=== PATIENT | male | born 1975 | race Caucasian/White ===

== ENCOUNTER → 2020-08-29 10:09 | Outpatient (REF) | payer MEDICAID, OTHER, SELFPAY | LOC: HO.SL 10:09 | PROVIDERS: Visit Provider Emergency Medicine | DX: G47.33 Obstructive sleep apnea (adult) (pediatric) (principal); G47.00 Insomnia, unspecified; R63.5 Abnormal weight gain | CPT/HCPCS: 95806 ==

== ENCOUNTER 2025-01-26 08:39 | Outpatient (REF) | payer MEDICAID, OTHER, SELFPAY ==
--- OUTSIDE RECORDS SUMMARY | 2025-01-26 09:01 | XMS_ITS | Encounter Summary ---
Author Organization [employer] Address [address] [facility] [address] [address] Care Team Providers Care Facing Slitter Name Role Phone Petty Ko [facility] Primary Care Provider [phone] Hany Baumann Unavailable Unavailable Encounter Details Date Type Department Care Team (Latest Contact Info) Description 02/01/2022 Abstract [facility] CONVERSIONS Dental, Provider, DDS Social History Tobacco Use Types Packs/Day Years Used Date Smoking Tobacco: Never Assessed Sex and Gender Information Value Date Recorded Sex Assigned at Male 08/27/2022 10:19 AM EDT Legal Sex Male 10:19 AM EDT Gender Identity Male 08/27/2022 10:19 AM EDT Sexual Orientation Choose not to disclose 2021 10:19 AM EDT documented as of this encounter Plan of Treatment Upcoming Encounters Date Type Department Care Team (Late st Contact Info) Description 02/01/2025 2:00 PM EDT Office Visit [facility] ADULT DENTAL [address] [place] [address] Radha Grove 02/08/2025 2:00 PM EDT Office Visit [facility] ADULT DENTAL [address] [place] [address] Radha Grove 03/05/2025 2:00 PM EDT Office Visit [facility] OPTOMETRY [address] [place] [address] Rocky, Malika, OD [address] [place] [address] documented as of this encounter Visit Diagnoses Not on filedocumented in this encounter Care Teams Facing Slitter Relationship Specialty Start Date End Date Petty Ko FNP [address] [place] [address] PCP - General Family Medicine 06/25/22 Hany Baumann FNP [address] [place] [id number] Nurse Practitioner Family Medicine 10/01/23 documented as of this encounter
--- OUTSIDE RECORDS SUMMARY | 2025-01-26 09:01 | XMS_ITS | Encounter Summary ---
Author Organization [employer] Address [address] [address] Care Team Providers Care Highway Maintenance Technician Name Role Phone Petty Ko Primary Care Provider [phone] Hany Baumann Unavailable Unavailable Reason for Referral * Consultation (Routine) - Authorized Specialty Diagnoses / Procedures Referred By Nkechi flores Referred To Contact Psychiatry / Behavioral Health Diagnoses Severe major depression (CMS/HCC) Petty Ko FNP [address] [place] [address] Phone: tel: fax: Referral ID Status Reason Start Date Expiration Date Visits Requested Visits Authorized [id number] Authorized Specialty Services Required 01/24/2025 01/24/2026 1 1 * Consultation (Routine) - Authorized Specialty Diagnoses / Procedures Referred By Nkechi flores Referred To Contact Behavioral Health Diagnoses Severe major depression (CMS/HCC) Petty Ko FNP [address] [place] [address] Phone: tel: fax: Referral ID Status Reason Start Date Expiration Date Visits Requested Visits Authorized [id number] Authorized Specialty Services Required 01/24/2025 01/24/2026 1 1 Reason for Visit * Reason Comments Follow-up Encounter Details Date Type Department Care Team (Britt st Contact Info) Description 01/22/2025 2:30 PM EDT Office Visit [facility] MEDICINE [address] [place] [address] [facility] [address] [place] [address] Severe major depression (CMS/HCC) (Primary Dx); Lower urinary tract symptoms; Mixed hyperlipidemia; Dietary counseling; Exercise counseling; Class 1 obesity due to excess calories with serious comorbidity and body mass index (BMI) of 32.0 to 32.9 in adult Social History Tobacco Use Types Packs/Day Years Used Date Smoking Tobacco: Never Smokeless Tobacco: Never Tobacco Cessation:Counseling Given: Not Answered Alcohol Use Standard Drinks/Week Comments Never 0 (1 standard drink = 0.6 oz pur e alcohol) Depression Answer Date Recorded Patient Health Questionnaire-9 Score 8 01/22/2025 Patient Health Questionnaire-9 Score 8 01/22/2025 Last PHQ-9: Questionnaire Data Not on file 0 01/22/2025 Housing Stability Answer Date Recorded What is your housing situation today? I have patricia velasquez 08/12/[address] you li ve. Do you have problems with any of the following? None of the above 08/12/2023 Food Insecurity Answer Date Recorded Within the past 12 months, y ou worried that your food would run out before you got money to buy more: Never True 08/12/2023 Within the past 12 months,th e food you bought just didn't last and you didn't have enough money to get more: Never True Transportation Answer Date Recorded In the past 12 months, has l ack of transportation kept you from medical appts, meetings, work or from getting things needed for daily living? No 08/12/2023 Utilities Answer Date Recorded In the past 12 months, has t he electric, gas, oil or water company threatened to shut off services in your home? No 08/12/2023 Depression Answer Date Recorded Patient Health Questionnaire-2 Score 2 01/22/2025 Sex and Gender Information Value Date Recorded Sex Assigned at Male 08/27/2022 10:19 AM EDT Legal Sex Male 10:19 AM EDT Gender Identity Male 08/27/2022 10:19 AM EDT Sexual Orientation Choose not to disclose 2021 10:19 AM EDT documented as of this encounter Last Filed Vital Signs Vital Sign Reading Time Taken Comments Blood Pressure 138/88 01/22/2025 2:38 PM EDT Pulse 88 01/22/2025 2:38 PM EDT Temperature 36.3 ??C (97.4 ??F) 01/22/2025 2:38 PM ED T Respiratory Rate 20 01/22/2025 2:38 PM EDT Oxygen Saturation 98% 01/22/2025 2:38 PM EDT Inhaled Oxygen Concentration - - Weight 79.5 kg (175 lb 3.2 oz) 01/22/2025 2:38 P M EDT Height 157.5 cm (5' 2 ) 01/22/2025 2:38 PM EDT Body Mass Index 32.04 01/22/2025 2:38 PM EDT documented in this encounter Progress Notes * [facility], [facility] - 01/22/2025 2:30 PM EDT SUBJECTIVE: Get Birch is a 49 y.o. year old male with depression, NAFLD, HLD, IFG and hx of cerebral cysticercosis with persistent headache (previously followed by [facility] neurolog[place] who presents for chronic disease management. Denies recent illness, injury, or hospitalization. Last PCP Visit: 07/2023 Acute Concerns: Lower urinary tract sx-nocturia 2-3 x/night, no difficulty initaing urine, no other urinary sx. Drinking more coffee. Interval History Needs to be established with psychatric care. Not established with therapist. Accepts remote referral. Social History Social History Narrative Current living environment: Lives with and kids. 2 cats. 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 Sober x 30 years--would like to establsih with AUD clinic Marijuana Use: None Other drug use: None Patient Active Problem List Diagnosis Mild episode of recurrent major depressive disorder (CMS/HCC) Vitamin D deficiency Transaminitis Steatosis of liver Other chest pain Obstructive sleep apnea syndrome Numbness of hand IFG (impaired fasting glucose) Hypercholesterolemia H/O: attempted suicide Cerebral cysticercosis Dental calculus Periodontal disease Localized gingival recession Missing teeth, acquired Severe anxiety Mixed hyperlipidemia PTSD (post-traumatic stress disorder) Alcohol use Moderate episode of recurrent major depressive disorder (CMS/HCC) Abfraction No past surgical history on file. Family History Problem Relation Name Age of Onset Coronary artery disease Mother Review of Systems Constitutional: Negative for activity change, diaphoresis, fatigue, fever and unexpected weight change. Eyes: Negative for visual disturbance. Respiratory: Negative for apnea, cough, chest tightness and shortness of breath. Cardiovascular: Negative for chest pain, palpitations and leg swelling. Gastrointestinal: Negative for abdominal pain and nausea. Genitourinary: Positive for frequency. Negative for difficulty urinating, dysuria, hematuria and urgency. Neurological: Negative for dizziness, syncope, light-headedness and headaches. OBJECTIVE: Vitals: 01/22/25 1438 BP: 138/88 Pulse: 88 Resp: 20 Temp: 97.4 ??F (36.3 ??C) SpO2: 98% Physical Exam Constitutional: Appearance: Normal appearance. HENT: Head: Normocephalic. Right Ear: External ear normal. Left Ear: External ear normal. Nose: Nose normal. Eyes: Conjunctiva/sclera: Conjunctivae normal. Cardiovascular: Rate and Rhythm: Normal rate and regular rhythm. Heart sounds: Normal heart sounds. Pulmonary: Effort: Pulmonary effort is normal. Breath sounds: Normal breath sounds. Musculoskeletal: Right lower leg: No edema. Left lower leg: No edema. Skin: General: Skin is warm and dry. Capillary Refill: Capillary refill takes less than 2 seconds. Neurological: General: No focal deficit present. Mental Status: He is alert and oriented to person, place, and time. Psychiatric: Mood and Affect: Mood normal. Behavior: Behavior normal. ASSESSMENT/PLAN Depression -Currently Rx'd prazosin, Rip resolved, bupropion, lorazepam, venlafaxine, melatonin. Was previously followed by DONELL Baumann. - Patient is currently stable however needs referral for psych prescriber and outpatient therapy - Referral to behavioral health. Patient unable to stay for in person consult - Contact HC if sx worsen or experiencing thoughts of SI or self harm. Pt has N crisis contact information Nocturia -Will obtain UA, PSA, baseline labs - Patient to focus on lifestyle interventions including decreasing bladder irritants, limiting fluid intake before bed - Will follow-up pending lab results HLD -Continues rosuvastatin 20 mg - Will obtain fasting lipid panel - Dietary/exercise counseling Dietary Recommendations: Fruits, vegetables, whole grains, protein foods, and fat-free or low-fat dairy products are healthychoices. Eat different types of protein foods in your diet. This can include seafood, lean meats, poultry, beans, peas, lentils, nuts, seeds, soy products, and eggs. Limit foods and beverages higher in added sugars, saturated fat, and sodium. Exercise Recommendations: At least 150 minutes of moderate-intensity physical activity per week, or an equivalent combinationof moderate- and vigorous-intensity activity Diagnosis Plan 1. Severe major depression (CMS/HCC) Referral to Behavioral Health Referral to Behavioral Health Psychiatry 2. Lower urinary tract symptoms Hemoglobin A1c PSA,Total Urinalysis, Complete, with Reflex to Culture Hemoglobin A1c PSA,Total Urinalysis, Complete, with Reflex to Culture 3. Mixed hyperlipidemia rosuvastatin (Crestor) 20 MG tablet Comprehensive Metabolic Panel Lipid Panel, Standard Comprehensive Metabolic Panel Lipid Panel, Standard 4. Dietary counseling 5. Exercise counseling 6. Class 1 obesity due to excess calories with serious comorbidity and body mass index (BMI) of 32.0 to 32.9 in adult Follow Up: 6 months, routine Current Outpatient Medications on File Prior to Visit Medication Sig Dispense Refill ARIPiprazole (Abilify) 15 MG tablet Take 1 tablet (15 mg) by mouth at bedtime. 90 tablet 3 buPROPion XL (Wellbutrin XL) 300 MG 24 hr tablet Take 1 tablet (300 mg) by mouth in the morning. Donot crush, chew, or split. 90 tablet 3 gabapentin (Neurontin) 100 MG capsule TAKE 1 CAPSULE BY MOUTH DAILY IN THE EVENING LORazepam (Ativan) 1 MG tablet Take 1 tablet (1 mg) by mouth if needed at bedtime for anxiety. 30 tablet 5 melatonin 5 MG tablet Take 1 tablet (5 mg) by mouth if needed at bedtime (sleep). 90 tablet 3 prazosin (Minipress) 2 MG capsule Take 1 capsule (2 mg) by mouth at bedtime. 90 capsule 3 rosuvastatin (Crestor) 20 MG tablet Take 1 tablet (20 mg) by mouth at bedtime. 90 tablet 3 venlafaxine XR (Effexor XR) 75 MG 24 hr capsule Take 1 capsule (75 mg) by mouth Once daily. Do not crush or chew. 90 capsule 3 No current facility-administered medications on file prior to visit. Mongolian Translation: Provided by [facility] staff member JUANJO Rivera documented in this encounter Plan of Treatment Upcoming Encounters Date Type Department Care Team (Late st Contact Info) Description 02/01/2025 2:00 PM EDT Office Visit [facility] ADULT DENTAL [address] [place] [address] Radha Grove 02/08/2025 2:00 PM EDT Office Visit [facility] ADULT DENTAL [address] [place] [address] Radha Grove 03/05/2025 2:00 PM EDT Office Visit [facility] OPTOMETRY [address] [place], [place] [id number] Rocky, Malika, OD [address] [place] [address] Scheduled Orders Name Type Priority Associated Diagnoses Orde r Schedule Comprehensive Metabolic Panel Lab Routine Mixed hyperlipidemia Expected: 01/22/2025 (Approximate), Expires: 01/22/2026 Hemoglobin A1c Lab Routine Lower urinary tract symptoms Expected: 01/22/2025 (Approximate), Expires: 01/22/2026 PSA,Total Lab Routine Lower urinary tract symptoms Expected: 01/22/2025, Expires: 01/22/2026 Urinalysis, Complete, with Reflex to Culture Lab Routine Lower urinary tract symptoms Expected: 01/22/2025 (Approximate), Expires: 01/22/2026 Lipid Panel, Standard Lab Routine Mixed hyperlipidemia Expected: 01/22/2025 (Approximate), Expires: 01/22/2026 Scheduled Referrals Name Type Priority Associated Diagnoses Order Schedule Referral to Behavioral Health Outpatient Referral Routine Severe major depression (CMS/HCC) Expected: 01/24/2025 (Approximate), Expires: 01/24/2026 Referral to Behavioral Health Psychiatry Outpatient Referral Routine Severe major depression (CMS/HCC) Expected: 01/24/2025 (Approximate), Expires: 01/24/2026 documented as of this encounter Visit Diagnoses Diagnosis Severe major depression (CMS/HCC)- Primary Lower urinary tract symptoms Other symptoms involving urinary system Mixed hyperlipidemia Dietary counseling Dietary surveillance and counseling Exercise counseling Class 1 obesity due to excess calories with serious comorbidity and body mass index (BMI) of 32.0 to 32.9 in adult documented in this encounter Additional Health Concerns Assessment Noted Time PHQ-9 Depression Total Score: 8 01/23/20 25 2:40 PM EDT documented as of this encounter Care Teams Highway Maintenance Technician Relationship Specialty Start Date End Date Petty Ko FNP [address] [place] [address] PCP - General Family Medicine 06/25/22 Hany Baumann FNP [address] [place] [phone] Nurse Practitioner Family Medicine 10/01/23 documented as of this encounter
--- OUTSIDE RECORDS SUMMARY | 2025-01-26 09:01 | XMS_ITS | Encounter Summary ---
Author Organization [employer] Address [address] [facility] [address] [place] [address] Care Team Providers Care Perpetual Inventory Clerk Name Role Phone Petty Ko [employer]WORK [employer] Primary Care Provider [phone] Hany Baumann [employer]WORK REL[employer] TE[employer] Unavailable Unavailable Encounter Details Date Type Department Care Team (Latest Contact Info) Description 01/22/2025 Travel Social History Tobacco Use Types Packs/Day Years Used Date Smoking Tobacco: Never Smokeless Tobacco: Never Alcohol Use Standard Drinks/Week Comments Never 0 [...] Description 02/01/2025 2:00 PM EDT Office Visit [facility] ADULT DENTAL [address] [place] [address] Radha Grove 02/08/2025 2:00 PM EDT Office Visit [facility] ADULT DENTAL [address] [place] [address] Radha Grove 03/05/2025 2:00 PM EDT Office Visit [facility] OPTOMETRY [address] [place] [address] Rocky, Malika, OD [address] [place] [address] documented as of this encounter Visit Diagnoses Not on filedocumented in this encounter Additional Health Concerns Assessment Noted Time PHQ-9 Depression Total Score: 8 01/23/20 25 2:40 PM EDT documented as of this encounter Care Teams Perpetual Inventory Clerk Relationship Specialty Start Date End Date Petty Ko FNP [address] [place] [address] PCP - General Family Medicine 06/25/22 Hany Baumann FNP [address] [place] [address] Nurse Practitioner Family Medicine 10/01/23 documented as of this encounter
--- OUTSIDE RECORDS SUMMARY | 2025-01-26 09:02 | XMS_ITS | Clinical Summary ---
Author Organization [employer] Address [address] [place] [address] Care Team Providers Care Beamster Name Role Phone Petty Ko CAN MARKER Primary Care Provider [phone] Hany Baumann CAN MARKER Unavailable Unavailable Allergies No known active allergies Medications * This document contains information received from the source organization and may not represent a complete record from that organization. gabapentin (Neurontin) 100 MG capsule TAKE 1 CAPSULE BY MOUTH DAILY IN THE EVENING 08/09/20 23 Active ARIPiprazole (Abilify) 15 MG tabletIndications :Severe major depression (CMS/HCC) Take 1 tablet (15 mg) by mouth at bedtime. 90 tablet 3 04/09/20 24 Active buPROPion XL (Wellbutrin XL) 300 MG 24 hr tabletIndications :Severe major depression (CMS/HCC) Take 1 tablet (300 mg) by mouth in the morning. Do not crush, chew, or split. 90 tablet 3 04/09/20 24 Active LORazepam (Ativan) 1 MG tabletIndications :Severe major depression (CMS/HCC) Take 1 tablet (1 mg) by mouth if needed at bedtime for anxiety. 30 tablet 5 04/09/20 24 Active melatonin 5 MG tabletIndications :Severe major depression (CMS/HCC) Take 1 tablet (5 mg) by mouth if needed at bedtime (sleep). 90 tablet 3 04/09/20 24 Active prazosin (Minipress) 2 MG capsuleIndication s:Severe major depression (CMS/HCC) Take 1 capsule (2 mg) by mouth at bedtime. 90 capsule 3 04/09/20 24 Active venlafaxine XR (Effexor XR) 75 MG 24 hr capsuleIndication s:Severe major depression (CMS/HCC) Take 1 capsule (75 mg) by mouth Once daily. Do not crush or chew. 90 capsule 3 04/09/20 24 Active rosuvastatin (Crestor) 20 MG tabletIndications :Mixed hyperlipidemia Take 1 tablet (20 mg) by mouth at bedtime. 90 tablet 3 01/23/20 25 Active rosuvastatin (Crestor) 20 MG tabletIndications :Mixed hyperlipidemia Take 1 tablet (20 mg) by mouth at bedtime. 90 tablet 3 12/21/19 25 025 Discontinued(Re order (will not trigger notification to Pharmacy)) Active Problems Problem Noted Date Diagnosed Date Abfraction 2024 Moderate episode of recurrent major depressive d isorder 04/09/2024 Assessment & Plan (04/09/2024 5:37 PM EDT): Pt does have history of suicide attempt several years ago. Does not currently have SI, so no indication for Crisis involvement or inpatient care. Although he lives with his and children and works with others, has struggled with feeling isolated and alone. Having intrusive thoughts about purchasing a gun, although has no SI or HI and no plan to act on the thoughts. Reviewed with patient the risks associated with having a firearm in the home, especially as he has children, and risk associated with impulsivity if episode of worsened depression. Urged to discuss these thoughts and feelings with his therapist. He says he will call to reschedule appt. He will continue current medications: Venlafaxine 75 mg once daily, Bupropion XL 300 mg daily in the morning, Aripiprazole 15 mg daily, Prazosin 2 mg at bedtime, Lorazepam 1 mg at bedtime, Melatonin 5 mg at bedtime prn. Since this provider will be retiring, he is now referred back to PCP for further medication management. Any issues or concerns, contact [facility]. All his questions were answered and I have wished him well. He agrees with the plan Alcohol use 03/09/2024 PTSD (post-traumatic stress disorder) 02/20/2024 Mixed hyperlipidemia 08/28/2023 Severe anxiety 08/26/2023 Assessment & Plan (08/26/2023 8:54 AM EDT): Assessment: Patient with anxiety and depressive sxs. Factors contributing to his sxs are, uncertainty about migrant status. Provide him a space to vent and discuss the importance of stay in the present moment, rather than focus on the future, provided him with relaxation techniques for him to practice at least 1x/day. Patient will benefit from stay engaged with this functional tester typewriters to develop the skills to manage sxs. Patient unable to be referred to terminal make up operator therapy due to health insurance don't cover services. At this time Get Birch meets criteria for Visit Diagnoses: Problem List Items Addressed This Visit Other Moderate episode of recurrent major depressive disorder (CMS/HCC) Severe anxiety Patient ready to address current needs Yes Strengths include Get is in action stage of change, he is receptive and willing to engage. PLAN: 1. Follow up with [facility]: Recommended for follow-up: 08/28/23 at 3:30pm 2. Patient goal is improve mental health 3. Behavioral Recommendations a. [facility] follow up b. Use of coping skills recommended c. Taking Medication as prescribed Dental calculus 06/13/2023 Periodontal disease 06/13/2023 Localized gingival recession 06/13/2023 Missing teeth, acquired 06/13/2023 Obstructive sleep apnea syndrome 05/31/2023 Overview (08/09/2023): Using CPAP and purchasing supplies out of pocket due to insurance Mild episode of recurrent major depressive disor tammy 11/05/2022 Assessment & Plan (02/03/2024 4:45 PM EDT): Pt does have history of suicide attempt several years ago. Does not currently have SI, so no indication for Crisis involvement or inpatient care. Although he lives with his and children and works with others, has struggled with feeling isolated and alone. Previously reported that he found it helpful to work with [facility] Clinician Sahara Mcintosh. Unfortunately missed another appointment with her and F/U phone call and did not call to reschedule. Although it is admittedly challenging for him to get to appointments with his work schedule, he has shown little motivation to seek out support. Still with irritability and persistent anhedonia despite significant psychiatric polypharmacy. No med change at this time. Continue Venlafaxine 75 mg once daily, Bupropion XL 300 mg daily in the morning, Aripiprazole 15 mg daily, Prazosin 2 mg at bedtime, Lorazepam 1 mg at bedtime, Melatonin 5 mg at bedtime prn. On 08/19/2023 pt was advised that provider would be retiring. F/U in 2 months and we will discuss plan for continuity of care. He agrees with the plan Assessment & Plan (12/05/2023 5:37 PM EST): Pt does have history of suicide attempt several years ago. Does not currently have SI, so no indication for Crisis involvement or inpatient care. Although he lives with his and children and works with others, has struggled with feeling isolated and alone. He has found it helpful to work with [facility] Clinician Sahara Mcintosh, and is now urged to call to schedule F/U session. Still with persistent anhedonia despite significant psychiatric polypharmacy. No med change at this time. Continue Venlafaxine 75 mg once daily, Bupropion XL 300 mg daily in the morning, Aripiprazole 15 mg daily, Prazosin 2 mg at bedtime, Lorazepam 1 mg at bedtime, Melatonin 5 mg at bedtime prn. On 08/19/2023 pt was advised that provider would be retiring, but we would make every effort to ensure continuity of care. F/U with me in 2 months. He agrees with the plan. Assessment & Plan (10/25/2023 8:22 AM EST): PROGRESS NOTE: ID: Get is a 47 y.o. cis-male with previous documented hx of Depression and Anxiety, Hx of MH services including psychopharmacology who presents for Depression and Anxiety. He lives with , 2 adult children and 1 teenager. 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 During [facility] Consult Get presenting with depressed mood, loss of interests/pleasure , changes in sleep difficulty falling asleep, difficulty staying asleep , and restless, unsatisfying sleep, change in appetite or weight reduce appetite, psychomotor agitation, trouble concentrating, thoughts of worthlessness or guilt, fatigue/loss of energy and excessive worry/anxiety, difficulty controlling worry, restless/keyed up/On edge, easily fatigued, difficulty concentrating/Mind going blank , irritability, and sleep disturbance difficulty falling asleep, difficulty staying asleep , and restless, unsatisfying sleep; for a period of 18+ mo, for all symptoms in the context of traumatic event related to deportation, negative feelings that hold him to be the father he was before and due to this episode he carries a lot of guilt, and shame. PLAN: Behavioral Health Integration Plan: [facility] Patient Self Plan: Patient to utilize skills provided in intervention, Patient to reach out to [facility] team as needed, and Comply with medication. Assessment & Plan (09/26/2023 9:37 AM EST): Assessment: Patient presents with depressive symptoms. Passive SI without plan or intention. Reason for visit was to assess symptoms and provide support to patient. Symptoms are present in the context uncertainty on migratory status and financial struggle. Provided space non judgement space for him to expressed with concerns and provided psychoeducation around the importance of accepting what he can't change and committing on what he can change and Provided [facility] crisis number for him to call if a crisis event arise. At this time Get Birch meets criteria for Visit Diagnoses: Problem List Items Addressed This Visit Other Moderate episode of recurrent major depressive disorder (CMS/HCC) Severe anxiety Patient ready to address current needs Yes Strengths include Get is in action stage of change, he is receptive and willing to work on his MH. PLAN: 1. Follow up with [facility]: Recommended for follow-up: 10/24/23 at 3pm 2. Patient goal is to improve mental health 3. Behavioral Recommendations a. [facility] Follow up b. Use of coping skills c. Keeping Med. Management appts Assessment & Plan (08/29/2023 12:05 PM EDT): Assessment: Patient presents with depressive symptoms. Passive SI without plan or intention. Reason for visit was to assess symptoms and provide support to patient. Symptoms are present in the context uncertain migrant status and financial struggle. Provided space for him to vent and provide him with coping skills for him to manage depressive sxs. Encouraged him to continue to take his meds as prescribed and keep appts. ? At this time Get Birch meets criteria for Visit Diagnoses: Problem List Items Addressed This Visit ? Other ?? Moderate episode of recurrent major depressive disorder (CMS/HCC) ?? Patient ready to address current needs Yes ?? Strengths include Get is in action stage of change, he is receptive and willing to work on his MH. ?? PLAN: 1. Follow up with [facility]: Recommended for follow-up: 09/11/23 at 2:30pm 2. Patient goal is to improve mental health 3. Behavioral Recommendations a. [facility] Follow up b. Use of coping skills c. Keeping Med. Management appts Assessment & Plan (08/26/2023 8:54 AM EDT): Assessment: Patient with anxiety and depressive sxs. Factors contributing to his sxs are, uncertainty about migrant status. Provide him a space to vent and discuss the importance of stay in the present moment, rather than focus on the future, provided him with relaxation techniques for him to practice at least 1x/day. Patient will benefit from stay engaged with this functional tester typewriters to develop the skills to manage sxs. Patient unable to be referred to terminal make up operator therapy due to health insurance don't cover MH services. At this time Get Birch meets criteria for Visit Diagnoses: Problem List Items Addressed This Visit Other Moderate episode of recurrent major depressive disorder (CMS/HCC) Severe anxiety Patient ready to address current needs Yes Strengths include Get is in action stage of change, he is receptive and willing to engage. PLAN: 1. Follow up with [facility]: Recommended for follow-up: 08/28/23 at 3:30pm 2. Patient goal is improve mental health 3. Behavioral Recommendations a. IB follow up b. Use of coping skills recommended c. Taking Medication as prescribed Assessment & Plan (08/19/2023 5:28 PM EDT): Pt does have history of suicide attempt several years ago. Although he lives with his and children and works with others, has struggled with feeling isolated and alone. He started counseling with [facility] Clinician Sahara Mcintosh, but has not followed up to schedule continuing appts. Still with persistent anhedonia despite significant psychiatric polypharmacy. Has poor self-efficacy, consider element of personality disorder. Again reviewed that medication can be helpful but is only part of the treatment plan and he is urged to F/U with therapist, and practice coping strategies. No med change at this time. Continue Venlafaxine 75 mg once daily, Bupropion XL 300 mg daily in the morning, Aripiprazole 15 mg daily, Prazosin 2 mg at bedtime, Lorazepam 1 mg at bedtime, Melatonin 5 mg at bedtime prn. Today 08/19/2023 pt was advised that provider would be retiring within the next year or so, but we would make every effort to ensure continuity of care. F/U with me in 2 months. He agrees with the plan. Assessment & Plan (07/08/2023 5:10 PM EDT): Pt does have history of suicide attempt several years ago. Although he lives with his and children and works with others, has struggled with feeling isolated and alone. He has recently started counseling with [facility] Clinician Sahara Mcintosh. Urged to call to reschedule recent missed appointment. Still with persistent anhedonia despite significant psychiatric polypharmacy. Will adjust meds now: Increase to Venlafaxine 75 mg once daily. Stop Bupropion XL 150 mg daily. Continue Bupropion XL 300 mg daily but take in the morning not at bedtime. Continue Aripiprazole 15 mg daily, Prazosin 2 mg at bedtime, Lorazepam 1 mg at bedtime, Melatonin 5 mg at bedtime prn. Reschedule missed F/U with PCP. F/U with me in 4-6 weeks. He agrees with the plan. Assessment & Plan (06/14/2023 9:25 AM EDT): Assessment: Patient with anhedonia, insomnia, fatigue, poor appetite, low self-esteem, indecisiveness, passive SI without plan or intention, intrusive thoughts, isolation, persistent worry, trouble relaxing, anxiousness and fearfulness. Factors contributing to this symptoms are, the need to renew his work permit and license, not having a stable job to provide for his family. Patient will benefit from continuation of MH services with this functional tester type[employer] and keeping Med. Management appts to discuss medication efficacy. At this time Get Birch meets criteria for Visit Diagnoses: Problem List Items Addressed This Visit Other Major depressive disorder, recurrent episode with anxious distress (CMS/HCC) Patient ready to address current needs insurance doesn't cover services, meeting with me every 3 weeks. Strengths include willing to change and seeking support. PLAN: 1. Follow up with [facility]: Recommended for follow-up: 07/04/23 at 3:30pm 2. Patient goal is to learn coping skills to manage sxs 3. Behavioral Recommendations a. [facility] Follow up b. Use of coping skills c. Keeping Med. Management appts Assessment & Plan (05/23/2023 2:13 PM EDT): Get was engaged with active reflective listening and open-ended questions. Assessed symptoms, risks, and social supports with direct questions. Discussed current symptoms intensity and frequency. Emotions were normalized and validated. He identified listening to music, road trips, breathing techniques and physical activity as coping mechanisms and family as protective factors. Provided psychoeducation around coping skills for depression. Discussed OP therapy but due to his insurance he is not able to be referred for OP services. Provided education around integrated medicine and the options of follow up BE's as needed. Provided contact information should questions or concerns arise. Patient ready to address current needs insurance doesn't cover services for OP Strengths include willing to change PLAN: 1. Follow up with [facility]: Recommended for follow-up: 05/23/23 at 3:30pm 2. Patient goal is to learn coping skills to manage sxs 3. Behavioral Recommendations a. [facility] Follow up b. Use of coping skills Assessment & Plan (04/29/2023 5:03 PM EDT): Pt does have history of suicide attempt several years ago. Although he lives with his and children and works with others, has struggled with feeling isolated and alone. He is on significant psychiatric polypharmacy, what he needs is counseling to help learn better social skills and coping strategies. Due to his limited health insurance it has been difficult to connect him to outpatient counseling. Will again request that [facility] clinician reach out to him for F/U. No change in medication. F/U with me in 2 months. He agrees with the plan. Assessment & Plan (03/12/2023 5:02 PM EDT): Pt does have history of suicide attempt several years ago. Although he lives with his and children and works with others, feels isolated and alone. He is on significant psychiatric polypharmacy, what he needs is counseling to help learn better social skills and coping strategies. Due to his limited health insurance it has been difficult to connect him to outpatient counseling. Spoke with [facility] clinician and we will request that she reach out to him for F/U. No change in medication. F/U with me in 6 weeks. He agrees with the plan. Assessment & Plan (01/29/2023 5:44 PM EDT): Pt does have history of suicide attempt several years ago. He is still not doing well, although lives with and children and works with others, feels isolated and alone. He is on significant psychiatric polypharmacy, what he needs is counseling to help learn better social skills and coping strategies. Due to his limited health insurance he doesn't have options for outpatient counseling. Will refer to [facility]. No change in medication. F/U with me in 6 weeks. He agrees with the plan. Assessment & Plan (12/10/2022 5:02 PM EST): Pt does have history of suicide attempt several years ago. He is still not doing well, although lives with and children and works with others, feels isolated and alone. He is on significant psychiatric polypharmacy, what he needs is counseling to help learn better social skills and coping strategies. Due to his limited health insurance he doesn't have options for outpatient counseling. We have attempted on multiple occasions to have him connect with one of the [facility] Integrated Clinicians, but it has still remained elusive. Now that [facility] will have our own Clinicians, will refer to them. No change in medication. F/U with me in 6 weeks. He agrees with the plan. Assessment & Plan (11/05/2022 6:15 PM EST): Pt does have history of suicide attempt several years ago. He is still not doing well, although lives with and children and works with others, feels isolated and alone. He is on significant psychiatric polypharmacy, what he needs is counseling to help learn better social skills and coping strategies. Due to his limited health insurance he doesn't have options for outpatient counseling. We have attempted on multiple occasions to have him connect with one of the [facility] Integrated Clinicians, but it has still remained elusive. Will try once again. No change in medication. F/U with me in 1 month. He agrees with the plan. 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 ? 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 Previously followed by comprehensive neurology clinic at [facility] for possible cysticercosis of the [employer]. Brain MRI from 2018 showed 2 large cysts on left frontal lobe and right parietal lobe. Per neurology notes pt was treated twice with albendazole and dexamethasone with temporary sx improvement. Last seen 02/2022 with plan for 3 month follow up which does not seem to have occurred. Reports headaches have continued. Would like to reestablish with neurology Numbness of hand 11/01/2017 Overview (05/31/2023): Left hand and wrist Last Assessment & Plan: Intermittent left hand and wrist numbness. No further cardiac evaluation indicated. Patient may need outpatient orthopedic visit to consider hand or neck imaging. No current symptoms. Advised to try short course of ibuprofen if symptoms recur. Other chest pain 10/31/2017 Overview (05/31/2023): Last Assessment & Plan: Chest pain, atypical, with low suspicion for cardiac etiology. - EKG reassuring without acute findings - Troponins normal - Chest x-ray showed no acute cardiopulmonary disease - Hemoglobin A1c within normal limits, 5.2 - Lipid panel showed hypertriglyceridemia 472. LDL not measured. - ETT completed. Good exercise tolerance. METs exercise goals with heart rate target. No ischemic EKG changes or exertional symptoms. - Patient on lorazepam for anxiety, which will hopefully be helpful Encounters Date Type Department Care Team Description 01/22/2025 2:30 PM EDT Office Visit [facility] MEDICINE [address] [place] [address] [facility] Severe major depression (CMS/HCC) (Primary Dx); Lower urinary tract symptoms; Mixed hyperlipidemia; Dietary counseling; Exercise counseling; Class 1 obesity due to excess calories with serious comorbidity and body mass index (BMI) of 32.0 to 32.9 in adult 01/22/2025 Travel 2024 9:00 AM EST Office Visit [facility] ADULT DENTAL [address] [place] [address] Rene Lee DDS Abfraction (Primary Dx) 12/21/2024 Refill [facility] CHC MED & PEDS [address], [place] [id number] [facility] Mixed hyperlipidemia; Severe major depression (CMS/HCC) 11/19/2024 3:00 PM EST Office Visit [facility] ADULT DENTAL [address] [place] [address] Radha Grove Dental calculus (Primary Dx); Dental plaque; Subgingival dental calculus; Periodontal disease from Last 3 Months Immunizations Name Administration Dates Next Due Influenza injectable quadriv alent IIV4 with preservative 08/18/2018 Influenza injectable quadrivalent preservative f ree 07/12/2023,11/09/2017 Tdap 09/11/2021 Family History Medical History Relation Name Comments Coronary artery disease Mother Relation Name Status Comments Mother Social History Tobacco Use Types Packs/Day Years [...] not to disclose 2021 10:19 AM EDT Last Filed Vital Signs Vital Sign Reading [...] Mass Index 32.04 01/22/2025 2:38 PM EDT Plan of Treatment Upcoming Encounters Date Type Department Care Team (Late st Contact Info) Description 02/01/2025 2:00 PM EDT Office Visit [facility] ADULT DENTAL [address] [place] [address] Radha Grove 02/08/2025 2:00 PM EDT Office Visit [facility] ADULT DENTAL [address] [place] [address] Radha Grove 03/05/2025 2:00 PM EDT Office Visit [facility] OPTOMETRY [address] [place] [address] Rocky, Malika, OD [address] [place] [address] Health Maintenance Due Date Last Done Comments CT Colonography 1976 Colonoscopy 1976 FIT 1976 FOBT 1976 Sigmoidoscopy 1976 Alcohol/Substance Use Screening 1988 Family Planning (PISQ) 1991 Hepatitis A Vaccines (1 of 2 - Risk 2-dose series) 1995 Hepatitis B Vaccines (1 of 3 - 19+ 3-dose series) 1995 COVID-19 Vaccine ( - season) 2024 Influenza Vaccine (#1) 2024 , 08/18/2018, 11/09/2017 SDOH Screening 07/12/2024 07/12/2023 Dental Oral Exam 05/20/2025 11/19/2024, 08/2022, 02/01/2022, Additional history exists Dental Prophylaxis 05/20/2025 11/19/2024, 0 06/13/2023, 08/07/2022, Additional history exists Dental X-Ray: Bitewings 11/20/2025 11/19/19, 06/13/2023, 08/07/2022, Additional history exists Depression Screening 01/22/2026 01/22/2025, 01/23/20 Tobacco Screening 01/24/2026 01/24/2025 Dental X-Ray: Full Mouth 06/14/2026 06/13/2023, 09/28 Colorectal Cancer Screening 08/18/2026 FIT DNA/Cologuard 08/18/2026 08/18/2023 Zoster Vaccines (1 of 2) 2026 Lipid Panel 08/09/2028 08/09/2023, 04/27, 08/03/2020 DTaP/Tdap/Td Vaccines (2 - Td or Tdap) 09/11/2031 09/11/2021 RSV Patients and Patients Aged 60 years or older (1 - 1-dose 75+ series) 2051 HIV Screening Completed 08/03/2020 Hepatitis C Screening Completed 08/03/2020 HIB Vaccines Aged Out No longer eligi ble based on patient's age to complete this topic HPV Vaccines Aged Out No longer eligi ble based on patient's age to complete this topic IPV Vaccines Aged Out No longer eligi ble based on patient's age to complete this topic Meningococcal Vaccine Aged Out No doug erwin eligible based on patient's age to complete this topic Pneumococcal Vaccine: Pediatrics (0 to 5 Years) and At-Risk Patients (6 to 49) Years) Aged Out No longer eligible based on patient's age to complete this topic RSV under 20 months Aged Out No longe r eligible based on patient's age to complete this topic Rotavirus Vaccines Aged Out No longer eligible based on patient's age to complete this topic Procedures Procedure Name Priority Date/Time Associated Diagnosis Comments CASE PRESENTATION, DETAILED AND EXTENSIVE TREATMENT PLANNING Routine 2024 9:00 AM EST 20 B(V) RESIN-BASED COMPOSITE - 1 SURF, POSTERIOR Routine 2024 9:00 AM EST PERIODIC ORAL EVALUATION - ESTABLISHED PATIENT Routine 11/19/2024 3:00 PM EST FULL MOUTH DEBRIDEMENT TO ENABLE A COMPREHENSIVE ORAL EVALUATION AND DIAGNOSIS ON A SUBSEQUENT VISIT Routine 11/19/2024 3:00 PM EST Dental calculus Dental plaque Subgingival dental calculus Periodontal disease CASE PRESENTATION, DETAILED AND EXTENSIVE TREATMENT PLANNING Routine 11/19/2024 3:00 PM EST ORAL HYGIENE INSTRUCTIONS Routine 11/19/2024 3:00 PM EST Dental calculus Dental plaque Subgingival dental calculus Periodontal disease PROPHYLAXIS - ADULT Routine 11/19/2024 3 :00 PM EST Dental calculus Dental plaque Subgingival dental calculus Periodontal disease BITEWINGS - 4 RADIOGRAPHIC IMAGES Routine 11/19/2024 3:00 PM EST LAB COLOGUARD?? COLON CANCER SCREEN Routine 08/18/2023 2:00 PM EDT Encounter for screening for malignant neoplasm of colon LIPID PANEL, STANDARD Routine 08/09/2023 Mixed hyperlipidemia INTRAORAL - COMPLETE SERIES OF RADIOGRAPHIC IMAGES Routine 06/13/2023 8:00 AM EDT Dental calculus Periodontal disease Localized gingival recession Missing teeth, acquired ZZZ HISTORICAL HEPATITIS C AB W/REFL TO HCV RNA, QN, PCR Routine 08/03/2020 8:53 AM EDT HIV 1/2 ANTIGEN/ANTIBODY, FOURTH GENERATION W/RFL Routine 08/03/2020 8:53 AM EDT from Last 3 Months or Most Recently Relevant to Health Maintenance Results * Cologuard?? colon cancer screening (08/18/2023 2:00 PM EDT) Pathologist [facility] Cologuard Result Negative Negative 08/23/20 7:04 PM EDT [facility] (CLIA #:[id number]) Comment: NEGATIVE TEST RESULT. A negative Cologuard result indicates a low likelihood that a colorectal cancer (CRC) or advanced adenoma (adenomatous polyps with more advanced pre-malignant features) ??is present. The chance that a person with a negative Cologuard test has a colorectal cancer is less than 1 in 1500 (negative predictive value >99.9%) or has an ??advanced adenoma is less than ??5.3% (negative predictive value 94.7%). These data are based on a prospective cross-sectional study of 10,000 individuals at average risk for colorectal cancer who were screened with both Cologuard and colonoscopy. (Herbert Arenas al, N Engl J Med 2014;370(14):1286- 1297) The normal value (reference range) for this assay is negative. COLOGUARD RE-SCREENING RECOMMENDATION: Periodic colorectal cancer screening is an important part of preventive healthcare for asymptomatic individuals at average risk for colorectal cancer. ??Following a negative Cologuard result, the [place] [employer] and U.S. Multi-Society Task Force screening guidelines recommend a Cologuard re-screening interval of 3 years. References: [place] [employer] Guideline for Colorectal Cancer Screening: https://www.cancer.org/cancer/fcltn-ouobrh-njhiwn/sawfhhmjc-yiohyanwm-ppmmfsx/ac s-rec ommendations.html.; David DK, Eufemia CR, Dinah NicholsK, Colorectal Cancer Screening: Recommendations for Physicians and Patients from the U.S. Multi-Society Task Force on Colorectal Cancer Screening , Am J Gastroenterology 2017; 112:2509-1283. TEST DESCRIPTION: Composite algorithmic analysis of stool DNA-biomarkers with hemoglobin immunoassay. ?? Quantitative values of individual biomarkers are not reportable and are not associated with individual biomarker result reference ranges. Cologuard is intended for colorectal cancer screening of adults of either sex, 45 years or older, who are at average-risk for colorectal cancer (CRC). Cologuard has been approved for use by the U.S. FDA. The performance of Cologuard was established in a cross sectional study of average-risk adults aged 50-84. Cologuard performance in patients ages 45 to 49 years was estimated by sub-group analysis of near-age groups. Colonoscopies performed for a positive result may find as the most clinically significant lesion: colorectal cancer [4.0%], advanced adenoma (including sessile serrated polyps greater than or equal to 1cm diameter) [20%] or non- advanced adenoma [31%]; or no colorectal neoplasia [45%]. These estimates are derived from a prospective cross-sectional screening study of 10,000 individuals at average risk for colorectal cancer who were screened with both Cologuard and colonoscopy. (Herbert Arenas al, N Engl J Med 2014;370(14):1890-0149.) Cologuard may produce a false negative or false positive result (no colorectal cancer or precancerous polyp present at colonoscopy follow up). A negative Cologuard test result does not guarantee the absence of CRC or advanced adenoma (pre-cancer). The current Cologuard screening interval is every 3 years. ([place] [employer] and U.S. Multi-Society Task Force). Cologuard performance data in a 10,000 patient pivotal study using colonoscopy as the reference method can be accessed at the following location: www.[employer].Moovly/results. Additional description of the Cologuard test process, warnings and precautions can be found at www.[employer].com. Stool specimen (specimen) Rectal contents / Unknown 08/18/2023 2:00 PM EDT 08/20/2023 9:43 PM EDT [facility] LAB MOLECULAR DIAGNOSTICS ORD ERABLES Final Result Performing Organization Address City/[facility]/ZIP Co de Phone Number [facility] (CLIA #:[id number]) [place] [address], * Lipid Panel, Standard (08/09/2023) Blood Venous blood specimen / Unknown [facility] LAB BLOOD ORDERABLES Final Re sult Performing Organization Address [facility] Co de Phone Number [facility] [address] [place] [address] [phone] * HEPATITIS C AB W/REFL TO HCV RNA, QN, PCR (08/03/2020 8:53 AM EDT) HEPATITIS C ANTIBODY NON-REACT MARTHA NON-REACT MARTHA [facility] INDEX 0.02 <1.00 [facility] Comment: ?? HCV antibody was non-reactive. There is no laboratory ?? evidence of HCV infection. ?? In most cases, no further action is required. However, if recent HCV exposure is suspected, a test for HCV RNA (test code 95431) is suggested. ?? For additional information please refer to http://education.[employer]/faq/EIU75s8 (This link is being provided for informational/ educational purposes only.) ?? 08/03/2020 8:53 AM EDT [facility] HISTORICAL/NON ORDERABLE LABS Final Result Performing Organization Address City/[facility]/ZIP Co de Phone Number [facility] [address] * HIV 1/2 ANTIGEN/ANTIBODY,FOURTH GENERATION W/RFL (08/03/2020 8:53 AM EDT) HIV-1/2 ANTIGEN AND ANTIBODIES, 4TH GENERATION W/ REFLEX NON-REACT MARTHA NON-REACT MARTHA [facility] Comment: HIV-1 antigen and HIV-1/HIV-2 antibodies were not detected. There is no laboratory evidence of HIV infection. ?? PLEASE NOTE: This information has been disclosed to you from records whose confidentiality may be protected by state law. ??If your state requires such protection, then the state law prohibits you from making any further disclosure of the information without the specific written consent of the person to whom it pertains, or as otherwise permitted by law. A general authorization for the release of medical or other information is NOT sufficient for this purpose. ? For additional information please refer to http://[employer]/faq/TUF608 (This link is being provided for informational/ educational purposes only.) ? The performance of this assay has not been clinically validated in patients less than 2 years old. ?? HIV-1/2 ANTIGEN AND ANTIBODIES, 4TH GENERATION W/ REFLEX NON-REACT MARTHA NON-REACT MARTHA [facility] Comment: HIV-1 antigen and HIV-1/HIV-2 antibodies were not detected. There is no laboratory evidence of HIV infection. ?? PLEASE NOTE: This information has been disclosed to you from records whose confidentiality may be protected by state law. ??If your state requires such protection, then the state law prohibits you from making any further disclosure of the information without the specific written consent of the person to whom it pertains, or as otherwise permitted by law. A general authorization for the release of medical or other information is NOT sufficient for this purpose. ? For additional information please refer to http://[employer]/faq/UGV021 (This link is being provided for informational/ educational purposes only.) ? The performance of this assay has not been clinically validated in patients less than 2 years old. ?? 08/03/2020 8:53 AM EDT us [facility] LAB BLOOD ORDERABLES Final Res ult [facility] [address] from Last 3 Months or Most Recently Relevant to Health Maintenance Insurance [place] [facility] FULL DENTAL-[facility] MEDICAID LIMITED ADULT DENTAL - HSN FULL (MEDICAID) Care Teams Beamster Relationship Specialty Start Date End Date Petty Ko FNP [address] [place] [phone] PCP - General Family Medicine 06/25/22 Hany Baumann FNP [address] [place] [phone] Nurse Practitioner Family Medicine 10/01/23
--- OUTSIDE RECORDS SUMMARY | 2025-01-26 09:02 | XMS_ITS | Encounter Summary ---
Author Organization [employer] Address [address] [place] [address] Care Team Providers Care [employer] Installer Name Role Phone Cranks [facility] Primary Care Provider [phone] Hany Baumann [facility] Unavailable Unavailable Reason for Visit * Reason Comments Med Change Request Encounter Details Date Type Department Care Team ([facility] st Contact Info) Description 08/09/2023 Refill [facility] MEDICINE [address] [place], [place] [phone] [facility] [address] [place], [place] [phone] Mixed hyperlipidemia Social History Tobacco Use Types Packs/Day Years Used Date Smoking Tobacco: Never Smokeless Tobacco: Never Alcohol Use Standard Drinks/Week Comments Never 0 (1 standard drink = 0.6 oz pur e alcohol) Depression Answer Date Recorded Patient Health Questionnaire-9 Score 7 07/08/2023 Housing Stability Answer Date Recorded What is [...] Date Recorded Patient Health Questionnaire-2 Score 2 07/08/2023 Sex and Gender Information Value Date Recorded [...] Description 02/01/2025 2:00 PM EDT Office Visit [facility] ADULT DENTAL [address] [place] [address] Radha Grove 02/08/2025 2:00 PM EDT Office Visit [facility] ADULT DENTAL [address] [place] [address] Radha Grove 03/05/2025 2:00 PM EDT Office Visit [facility] OPTOMETRY [address] [place] [address] Rocky, Malika, OD [address] [place] [address] documented as of this encounter Visit Diagnoses Diagnosis Mixed hyperlipidemia documented in this encounter Additional Health Concerns Assessment Noted Time PHQ-9 Depression Total Score: 7 07/08/20 23 4:12 PM EDT documented as of this encounter Care Teams D[employer] Installer Relationship Specialty Start Date End Date Petty Ko FNP [address] [place] [address] PCP - General Family Medicine 06/25/22 Hany Baumann FNP [address] [place] [phone] Nurse Practitioner Family Medicine 10/01/23 documented as of this encounter
[2025-01-26 11:31] LABS: Appearance Urine Clear; Color Urine Yellow; Glucose Urine UA Negative (Negative); Leukocyte Esterase Urine Negative (Negative); Nitrite Urine Negative (Negative); Urine Blood Negative (Negative); Urine Ketones Negative (Negative); Urine Protein Negative (Neg-Trace)
[2025-01-26 11:37] LABS: Bacteria Urine None Seen (None Seen); Hyaline Casts Urine 0-2 /LPF (0-2); RBC Urine 0-2 /HPF (0-2); Squamous Epithelial Cell Urine 0-2 /HPF (0-2); WBC Urine 0-5 /HPF (0-5)
[2025-01-26 11:46] LABS: Estimated Average Glucose 111 mg/dL; Hemoglobin A1C 151.7031 umol/L; Hemoglobin A1c % 5.5 % (<6.0); Total Hemoglobin (HGBA1C) 4133.5511 umol/L
[2025-01-26 11:58] LABS: Alanine Aminotransferase 47 U/L (0-40); Alkaline Phosphatase 114 U/L (39-117); Anion Gap 8 (12-20); Aspartate Amino Transferase 36 U/L (5-37); Bilirubin Total 0.3 mg/dL (0.0-1.0); Blood Urea Nitrogen 16 mg/dL (9-16); Calcium 9.1 mg/dL (8.4-10.2); Carbon Dioxide 28 mmol/L (22-29); Chloride 107 mmol/L (96-108); Cholesterol 190 mg/dL (<200); Estimated Glomerular Filt Rate > 60; Glucose Random 99 mg/dL (60-115); HDL Cholesterol 40 mg/dL (>40); LDL Cholesterol Calculated 79 mg/dL (<100); Sodium 139 mmol/L (135-145); Total Protein 7.3 g/dL (6.5-8.0); Triglycerides 355 mg/dL (<150)
[2025-01-26 12:03] LABS: Prostate Specific Antigen 3.54 ng/mL (<0.05-4.0)
== END 2025-01-26 08:40 | disposition home or self-care (01) ==
LOC: HO.HHCL 08:39
PROVIDERS: Visit Provider Registered Nurse
DX: R39.9 Unspecified symptoms and signs involving the genitourinary system (principal); E78.2 Mixed hyperlipidemia
CPT/HCPCS: 36415; 80053; 80061; 81001; 83036; 84153